=== PATIENT | male | born 1960 | race American Indian/Alaskan Native ===

== ENCOUNTER 2018-02-01 18:58 | Inpatient (IN) | payer BC, OTHER ==
[~2018-02-01] VITALS: Ht 180.3 cm; Wt 82.0 kg
[2018-02-01] MEDS ORDERED: DABI150C PO (20:31)
[2018-02-01] MEDS ORDERED: BENA20TA82 PO (20:31)
[2018-02-01] MEDS ORDERED: BACL10TA2 PO (20:31)
[2018-02-01] MEDS ORDERED: METF850T PO (20:31)
[2018-02-01] MEDS ORDERED: SITA100T11 PO (20:31)
[2018-02-01] MEDS ORDERED: IBUP-1984 PO (20:31)
[2018-02-01] MEDS ORDERED: SOTA80TA73 PO (20:31)
[2018-02-01 21:04] LABS: MEAN CORPUSCULAR HEMOGLOBIN 19.3 PG (27.0-31.0); MEAN CORPUSCULAR HGB CONC 30.5 % (33.0-36.5); MEAN CORPUSCULAR VOLUME 63.4 FL (78-98); MEAN PLATELET VOLUME 7.4 FL (7.4-10.4); PLATELET COUNT 456 X10'3 (140-440); RED BLOOD COUNT 3.22 X10'6 (4.70-6.10); WHITE BLOOD COUNT 5.1 X10'3 (4.5-11.0)
[2018-02-01 21:11] LABS: HEMOGLOBIN 6.2 g/dl (14.0-17.9)
[2018-02-01 21:12] LABS: HEMATOCRIT 20.4 % (42.0-52.0)
[2018-02-01 21:33] LABS: NUCLEATED RED BLOOD CELLS 2 /100WBC (0-0); TOTAL CELLS COUNTED 100
[2018-02-01 21:35] LABS: ANISOCYTOSIS 3+; HYPOCHROMASIA 3+; MICROCYTOSIS 3+; PLATELET ESTIMATE INCREASED; POIKILOCYTOSIS 1+; POLYCHROMASIA FEW
[2018-02-01] MEDS ORDERED: ondansetron/PF 4mg/2ml inj IV PRN (21:40)
[2018-02-01] MEDS ORDERED: acetaminophen 325mg tablet PO PRN (21:40)
[2018-02-01] MEDS ORDERED: insulin Lispro (HumaLOG) vial - multi-dose SQ SCH (21:45)
[2018-02-01] MEDS ORDERED: dextrose 50%-water 50ml dispensing syringe IV PRN ×2 (21:45)
[2018-02-01] MEDS ORDERED: dextrose ORAL solution 15 GM/59 ML bottle PO PRN ×2 (21:45)
[2018-02-01] MEDS ORDERED: MESSAGE TO PHARMACY PO ONE (21:45)
[2018-02-01] MEDS ORDERED: glucagon, human recombinant 1mg kit SUBCUT PRN (21:45)
[2018-02-01 23:00] VITALS: BP 133/59
[2018-02-02] VITALS (19 sets, daily range): BP systolic 111–134; BP diastolic 49–71
[2018-02-02] MEDS: normal saline 1000ml 1,000 ML IV SCH (03:00)
[2018-02-02 05:39] LABS: ALANINE AMINOTRANSFERASE 12 U/L (12-78); ALBUMIN 2.4 G/DL (3.4-5.0); ALBUMIN/GLOBULIN RATIO 0.7 (1.1-1.5); ALKALINE PHOSPHATASE 73 IU/L (46-116); ANION GAP 9 (8-16); ASPARTATE AMINO TRANSFERASE 13 U/L (10-37); BILIRUBIN,TOTAL 2.8 MG/DL (0.1-1.0); BLOOD UREA NITROGEN 6 MG/DL (7-18); BUN/CREATININE RATIO 10.9 (5.4-32.0); CALCIUM 7.7 MG/DL (8.5-10.1); CHLORIDE 108 MMOL/L (99-107); CREATININE 0.55 MG/DL (0.60-1.10); GLUCOSE 72 MG/DL (70-104); POTASSIUM 3.6 MMOL/L (3.5-5.1); SODIUM 142 MMOL/L (135-145); TOTAL CARBON DIOXIDE 25.4 MMOL/L (24-32); TOTAL PROTEIN 5.7 G/DL (6.4-8.2); eGFR > 90 ML/MIN
[2018-02-02 06:04] LABS: MEAN CORPUSCULAR HEMOGLOBIN 21.3 PG (27.0-31.0); MEAN CORPUSCULAR HGB CONC 31.5 % (33.0-36.5); MEAN CORPUSCULAR VOLUME 67.6 FL (78-98); MEAN PLATELET VOLUME 7.5 FL (7.4-10.4); PLATELET COUNT 373 X10'3 (140-440); RED BLOOD COUNT 3.22 X10'6 (4.70-6.10); RED CELL DISTRIBUTION WIDTH 31.7 % (11.5-14.5); WHITE BLOOD COUNT 4.7 X10'3 (4.5-11.0)
[2018-02-02 06:14] LABS: HEMATOCRIT 21.8 % (42.0-52.0); HEMOGLOBIN 6.9 g/dl (14.0-17.9)
[2018-02-02 06:43] LABS: TOTAL CELLS COUNTED 100
[2018-02-02 06:44] LABS: ANISOCYTOSIS 3+; HYPOCHROMASIA 3+; MICROCYTOSIS 1+; PLATELET ESTIMATE NORMAL
[2018-02-02 06:45] LABS: LARGE PLATELETS FEW; POIKILOCYTOSIS 1+; POLYCHROMASIA FEW
[2018-02-02] MEDS: sotalol 80mg tablet PO SCH ×2 (08:31→19:54)
[2018-02-02] MEDS: pantoprazole 40MG/NS 100ML BAG 100 ML IV SCH ×3 (12:27→22:46)
[2018-02-02] MEDS: octreotide inj. 1,250 MCG in normal saline 250ml IV soln 243.75 ML IV SCH (13:22)
[2018-02-02] MEDS ORDERED: HYDROmorphone inj. 0.5 MG/0.5 ML DISP.SYRIN IV PRN (15:50)
[2018-02-02] MEDS: thiamine 100mg tablet PO SCH (16:29)
[2018-02-02] MEDS: folic acid 1mg tablet PO SCH (16:29)
[2018-02-02] MEDS: baclofen 10mg tablet PO PRN (19:53)
[2018-02-02 22:10] LABS: BASOPHILS % (AUTO) 0.2 % (0-1); EOSINOPHILS # (AUTO) 0.1 X10'3 (0-0.9); EOSINOPHILS % (AUTO) 1.8 % (0-6); HEMATOCRIT 29.7 % (42.0-52.0); HEMOGLOBIN 9.6 g/dl (14.0-17.9); LYMPHOCYTES # (AUTO) 1.5 X10'3 (1.1-4.8); LYMPHOCYTES % (AUTO) 21.6 % (21-51); MEAN CORPUSCULAR HEMOGLOBIN 23.2 PG (27.0-31.0); MEAN CORPUSCULAR HGB CONC 32.3 % (33.0-36.5); MEAN CORPUSCULAR VOLUME 71.6 FL (78-98); MEAN PLATELET VOLUME 7.8 FL (7.4-10.4); MONOCYTES # (AUTO) 0.5 X10'3 (0-0.9); MONOCYTES % (AUTO) 6.9 % (2-12); NEUTROPHILS # (AUTO) 4.9 X10'3 (1.8-7.7); NEUTROPHILS % (AUTO) 69.5 % (42-75); PLATELET COUNT 379 X10'3 (140-440); RED BLOOD COUNT 4.15 X10'6 (4.70-6.10); RED CELL DISTRIBUTION WIDTH 30.8 % (11.5-14.5)
[2018-02-02] MEDS: traMADol 50MG tablet PO PRN (22:49)
[2018-02-03] VITALS (15 sets, daily range): BP systolic 104–177; BP diastolic 56–88
[2018-02-03] MEDS: pantoprazole 40MG/NS 100ML BAG 100 ML IV SCH ×3 (02:25→11:17)
[2018-02-03] MEDS: normal saline 1000ml 1,000 ML IV SCH ×2 (06:00→21:36)
[2018-02-03 06:28] LABS: BASOPHILS % (AUTO) 0.5 % (0-1); EOSINOPHILS # (AUTO) 0.2 X10'3 (0-0.9); EOSINOPHILS % (AUTO) 2.7 % (0-6); HEMATOCRIT 29.1 % (42.0-52.0); HEMOGLOBIN 9.2 g/dl (14.0-17.9); LYMPHOCYTES # (AUTO) 1.7 X10'3 (1.1-4.8); LYMPHOCYTES % (AUTO) 27.3 % (21-51); MEAN CORPUSCULAR HEMOGLOBIN 22.8 PG (27.0-31.0); MEAN CORPUSCULAR HGB CONC 31.8 % (33.0-36.5); MEAN CORPUSCULAR VOLUME 71.6 FL (78-98); MEAN PLATELET VOLUME 7.8 FL (7.4-10.4); MONOCYTES # (AUTO) 0.7 X10'3 (0-0.9); MONOCYTES % (AUTO) 10.8 % (2-12); NEUTROPHILS # (AUTO) 3.5 X10'3 (1.8-7.7); NEUTROPHILS % (AUTO) 58.7 % (42-75); PLATELET COUNT 395 X10'3 (140-440); RED BLOOD COUNT 4.06 X10'6 (4.70-6.10); RED CELL DISTRIBUTION WIDTH 30.8 % (11.5-14.5); WHITE BLOOD COUNT 6.1 X10'3 (4.5-11.0)
[2018-02-03 06:30] LABS: BASOPHILS % (AUTO) 0.6 % (0-1); EOSINOPHILS # (AUTO) 0.2 X10'3 (0-0.9); EOSINOPHILS % (AUTO) 3.4 % (0-6); HEMATOCRIT 28.7 % (42.0-52.0); HEMOGLOBIN 9.2 g/dl (14.0-17.9); LYMPHOCYTES # (AUTO) 1.6 X10'3 (1.1-4.8); LYMPHOCYTES % (AUTO) 27.1 % (21-51); MEAN CORPUSCULAR VOLUME 71.9 FL (78-98); MEAN PLATELET VOLUME 7.4 FL (7.4-10.4); MONOCYTES # (AUTO) 0.6 X10'3 (0-0.9); MONOCYTES % (AUTO) 10.2 % (2-12); NEUTROPHILS # (AUTO) 3.6 X10'3 (1.8-7.7); NEUTROPHILS % (AUTO) 58.7 % (42-75); PLATELET COUNT 393 X10'3 (140-440); RED BLOOD COUNT 3.99 X10'6 (4.70-6.10); RED CELL DISTRIBUTION WIDTH 31.3 % (11.5-14.5)
[2018-02-03 06:37] LABS: ALANINE AMINOTRANSFERASE 8 U/L (12-78); ALBUMIN 2.4 G/DL (3.4-5.0); ALBUMIN/GLOBULIN RATIO 0.7 (1.1-1.5); ALKALINE PHOSPHATASE 68 IU/L (46-116); ANION GAP 7 (8-16); ASPARTATE AMINO TRANSFERASE 22 U/L (10-37); BILIRUBIN,TOTAL 3.8 MG/DL (0.1-1.0); BLOOD UREA NITROGEN 5 MG/DL (7-18); BUN/CREATININE RATIO 8.2 (5.4-32.0); CALCIUM 7.9 MG/DL (8.5-10.1); CHLORIDE 108 MMOL/L (99-107); CREATININE 0.61 MG/DL (0.60-1.10); GLUCOSE 88 MG/DL (70-104); POTASSIUM 3.9 MMOL/L (3.5-5.1); SODIUM 140 MMOL/L (135-145); TOTAL CARBON DIOXIDE 24.8 MMOL/L (24-32); TOTAL PROTEIN 5.8 G/DL (6.4-8.2); eGFR > 90 ML/MIN
[2018-02-03 06:55] LABS: ANISOCYTOSIS 3+; HYPOCHROMASIA 2+; PLATELET ESTIMATE NORMAL
[2018-02-03 06:56] LABS: ELLIPTOCYTES 1+
[2018-02-03 06:57] LABS: MICROCYTOSIS 1+; POIKILOCYTOSIS 1+; POLYCHROMASIA 1+; TARGET CELLS FEW
[2018-02-03] MEDS: sotalol 80mg tablet PO SCH ×2 (08:45→19:32)
[2018-02-03] MEDS: multivitamins, therapeutics tablet PO SCH (08:45)
[2018-02-03] MEDS: thiamine 100mg tablet PO SCH (08:45)
[2018-02-03] MEDS: folic acid 1mg tablet PO SCH (08:45)
[2018-02-03] MEDS: baclofen 10mg tablet PO PRN (08:46)
[2018-02-03] MEDS ORDERED: DILT120C88 PO (13:07)
[2018-02-03] MEDS ORDERED: LIDOcaine Viscous 15ml cup ONE (14:11)
[2018-02-03] MEDS ORDERED: MIDAZolam 5mg/5ml vial ONE (14:11)
[2018-02-03] MEDS ORDERED: fentaNYL/PF 50MCG/1 ML 2ML syringe ONE ×2 (14:12)
[2018-02-03] MEDS: octreotide inj. 1,250 MCG in normal saline 250ml IV soln 243.75 ML IV SCH (14:18)
[2018-02-03] MEDS: pantoprazole 40mg Tablet.DR PO SCH (19:32)
[2018-02-03] MEDS: traMADol 50MG tablet PO PRN (21:30)
[2018-02-03 22:01] LABS: BASOPHILS % (AUTO) 0.4 % (0-1); EOSINOPHILS # (AUTO) 0.1 X10'3 (0-0.9); EOSINOPHILS % (AUTO) 0.7 % (0-6); HEMATOCRIT 29.6 % (42.0-52.0); HEMOGLOBIN 9.4 g/dl (14.0-17.9); LYMPHOCYTES # (AUTO) 1.2 X10'3 (1.1-4.8); LYMPHOCYTES % (AUTO) 16.5 % (21-51); MEAN CORPUSCULAR HEMOGLOBIN 22.9 PG (27.0-31.0); MEAN CORPUSCULAR HGB CONC 31.7 % (33.0-36.5); MEAN CORPUSCULAR VOLUME 72.3 FL (78-98); MEAN PLATELET VOLUME 7.7 FL (7.4-10.4); MONOCYTES % (AUTO) 13.6 % (2-12); NEUTROPHILS % (AUTO) 68.8 % (42-75); PLATELET COUNT 380 X10'3 (140-440); RED BLOOD COUNT 4.09 X10'6 (4.70-6.10); RED CELL DISTRIBUTION WIDTH 31.4 % (11.5-14.5); WHITE BLOOD COUNT 7.3 X10'3 (4.5-11.0)
[2018-02-04 05:31] LABS: BASOPHILS % (AUTO) 0.4 % (0-1); EOSINOPHILS # (AUTO) 0.1 X10'3 (0-0.9); HEMATOCRIT 28.1 % (42.0-52.0); HEMOGLOBIN 8.9 g/dl (14.0-17.9); LYMPHOCYTES # (AUTO) 1.7 X10'3 (1.1-4.8); LYMPHOCYTES % (AUTO) 26.4 % (21-51); MEAN CORPUSCULAR HEMOGLOBIN 22.9 PG (27.0-31.0); MEAN CORPUSCULAR HGB CONC 31.6 % (33.0-36.5); MEAN CORPUSCULAR VOLUME 72.5 FL (78-98); MEAN PLATELET VOLUME 7.4 FL (7.4-10.4); MONOCYTES # (AUTO) 0.8 X10'3 (0-0.9); NEUTROPHILS # (AUTO) 3.7 X10'3 (1.8-7.7); NEUTROPHILS % (AUTO) 58.2 % (42-75); PLATELET COUNT 354 X10'3 (140-440); RED BLOOD COUNT 3.87 X10'6 (4.70-6.10); WHITE BLOOD COUNT 6.3 X10'3 (4.5-11.0)
[2018-02-04 05:51] LABS: ALANINE AMINOTRANSFERASE 9 U/L (12-78); ALBUMIN 2.2 G/DL (3.4-5.0); ALBUMIN/GLOBULIN RATIO 0.6 (1.1-1.5); ALKALINE PHOSPHATASE 66 IU/L (46-116); ANION GAP 7 (8-16); ASPARTATE AMINO TRANSFERASE 19 U/L (10-37); BILIRUBIN,TOTAL 2.7 MG/DL (0.1-1.0); BLOOD UREA NITROGEN 5 MG/DL (7-18); BUN/CREATININE RATIO 8.6 (5.4-32.0); CALCIUM 7.8 MG/DL (8.5-10.1); CHLORIDE 108 MMOL/L (99-107); CREATININE 0.58 MG/DL (0.60-1.10); GLUCOSE 84 MG/DL (70-104); POTASSIUM 3.7 MMOL/L (3.5-5.1); SODIUM 141 MMOL/L (135-145); TOTAL PROTEIN 5.6 G/DL (6.4-8.2); eGFR > 90 ML/MIN
[2018-02-04 07:15] VITALS: BP 125/69
[2018-02-04] MEDS: sotalol 80mg tablet PO SCH (08:09)
[2018-02-04] MEDS: thiamine 100mg tablet PO SCH (08:09)
[2018-02-04] MEDS: multivitamins, therapeutics tablet PO SCH (08:09)
[2018-02-04] MEDS: pantoprazole 40mg Tablet.DR PO SCH (08:09)
[2018-02-04] MEDS: folic acid 1mg tablet PO SCH (08:09)
[2018-02-04 11:25] VITALS: BP 126/71
[2018-02-04 12:50] LABS: HEMATOCRIT 29.4 % (42.0-52.0); HEMOGLOBIN 9.5 g/dl (14.0-17.9); MEAN CORPUSCULAR HEMOGLOBIN 23.9 PG (27.0-31.0); MEAN CORPUSCULAR HGB CONC 32.2 % (33.0-36.5); MEAN CORPUSCULAR VOLUME 74.1 FL (78-98); MEAN PLATELET VOLUME 7.8 FL (7.4-10.4); PLATELET COUNT 328 X10'3 (140-440); RED BLOOD COUNT 3.97 X10'6 (4.70-6.10); WHITE BLOOD COUNT 6.9 X10'3 (4.5-11.0)
[2018-02-04] MEDS ORDERED: PANT-47 PO (12:53)
[2018-02-04] MEDS ORDERED: TRAM50TA2 PO (12:53)
[2018-02-04 14:08] LABS: ANISOCYTOSIS 3+; PLATELET ESTIMATE NORMAL; TOTAL CELLS COUNTED 100
[2018-02-04 14:09] LABS: HYPOCHROMASIA 3+
[2018-02-04 14:10] LABS: TARGET CELLS FEW; TEAR DROP CELLS FEW
[2018-02-04 14:11] LABS: ELLIPTOCYTES FEW; MICROCYTOSIS 1+; POLYCHROMASIA 1+
[2018-02-04 14:12] LABS: POIKILOCYTOSIS 1+
== END 2018-02-04 15:39 | disposition home or self-care (01) | DRG 378 ==
LOC: ER 18:59 → ED HOLD 21:36 → SUR 3N 22:31
PROVIDERS: ADMIT Internal Medicine; ATTEND Family Medicine
PROC: 30233N1 Transfusion of Nonautologous Red Blood Cells into Peripheral Vein, Percutaneous Approach (ICD-10-PCS; 2018-02-02)
PROC: 0DB68ZX Excision of Stomach, Via Natural or Artificial Opening Endoscopic, Diagnostic (ICD-10-PCS; principal; 2018-02-03)
PROC: 3E02340 Introduction of Influenza Vaccine into Muscle, Percutaneous Approach (ICD-10-PCS; 2018-02-03)
DX: K29.01 Acute gastritis with bleeding (principal); D62 Acute posthemorrhagic anemia; K27.4 Chronic or unspecified peptic ulcer, site unspecified, with hemorrhage; E11.9 Type 2 diabetes mellitus without complications; E78.00 Pure hypercholesterolemia, unspecified; K44.9 Diaphragmatic hernia without obstruction or gangrene; E78.5 Hyperlipidemia, unspecified; K76.0 Fatty (change of) liver, not elsewhere classified; F10.10 Alcohol abuse, uncomplicated; F17.210 Nicotine dependence, cigarettes, uncomplicated; I10 Essential (primary) hypertension; I48.91 Unspecified atrial fibrillation; G89.29 Other chronic pain; M19.90 Unspecified osteoarthritis, unspecified site; M54.9 Dorsalgia, unspecified; Z23 Encounter for immunization; Z88.0 Allergy status to penicillin; Z88.5 Allergy status to narcotic agent; Z79.899 Other long term (current) drug therapy; Z71.41 Alcohol abuse counseling and surveillance of alcoholic
CPT/HCPCS: 36415; 43239; 76700; 80053; 82948; 83036; 84484; 85025; 86885; 86900; 86901; 86920; 87070; 93005; 99152; 99285; A4620; C9113; J2250; J2354; J3010; J7030; P9016; Q2037

== ENCOUNTER 2018-06-02 05:40 | Inpatient (IN) | payer BC, OTHER | END 2018-06-18 14:30 | disposition home or self-care (01) | LOC: SUR 3N 06-04 21:00 → PAS IN 05:40 → SUR 3N 11:15 | PROC: 0DTN4ZZ Resection of Sigmoid Colon, Percutaneous Endoscopic Approach (ICD-10-PCS; principal; 2018-06-02 07:28) | DX: C18.7 Malignant neoplasm of sigmoid colon (principal) ==

== ENCOUNTER 2019-06-08 11:13 | Day surgery (SDC) | payer BC, OTHER ==
[~2019-06-08] VITALS: Ht 175.3 cm; Wt 98.2 kg
[2019-06-08] VITALS (8 sets, daily range): BP systolic 107–135; BP diastolic 69–76
[~2019-06-08 11:13] MED LIST: ATOR10TA70 PO; BACL10TA PO; CHOL500061 PO; DILT120C88 PO; DOCUMENT DATE & TIME OF BETA-BLOCKER PO ONE; SOTA80TA73 PO; TRAM50TA2 PO; clindamycin-Cleocin 900mg/D5W 50 ML IV ONE; famotidine 20mg tablet PO ONE
[2019-06-08] MEDS ORDERED: HYDR-4353 PO (12:00)
[2019-06-08 12:42] LABS: BASOPHILS % (AUTO) 0.5 % (0-1); EOSINOPHILS # (AUTO) 0.1 X10'3 (0-0.9); LYMPHOCYTES # (AUTO) 1.5 X10'3 (1.1-4.8); LYMPHOCYTES % (AUTO) 26.8 % (21-51); MEAN CORPUSCULAR HEMOGLOBIN 29.9 PG (27.0-31.0); MEAN CORPUSCULAR HGB CONC 33.4 g/dL (33.0-36.5); MEAN CORPUSCULAR VOLUME 89.4 FL (78-98); MEAN PLATELET VOLUME 6.9 FL (7.4-10.4); MONOCYTES # (AUTO) 0.7 X10'3 (0-0.9); MONOCYTES % (AUTO) 13.3 % (2-12); NEUTROPHILS # (AUTO) 3.2 X10'3 (1.8-7.7); NEUTROPHILS % (AUTO) 57.4 % (42-75); PRE OP HEMATOCRIT 40.8 % (42.0-52.0); PRE OP HEMOGLOBIN 13.6 g/dL (14.0-17.9); PRE OP PLATELET COUNT 210 X10'3 (140-440); RED BLOOD COUNT 4.57 X10'6 (4.70-6.10); RED CELL DISTRIBUTION WIDTH 16.3 % (11.5-14.5)
[2019-06-08 12:56] LABS: ALBUMIN 3.3 G/DL (3.4-5.0); ALKALINE PHOSPHATASE 118 IU/L (46-116); BLOOD UREA NITROGEN 10 MG/DL (7-18); BUN/CREATININE RATIO 17.2 (5.4-32.0); CALCIUM 8.5 MG/DL (8.5-10.1); CHLORIDE 109 MMOL/L (99-107); CREATININE 0.58 MG/DL (0.60-1.10); PRE OP ALT 25 U/L (30-65); PRE OP ANION GAP 10 (8-16); PRE OP AST 24 U/L (10-37); PRE OP BILIRUB, TOTAL 1.9 MG/DL (0.0-1.0); PRE OP GLUCOSE 98 MG/DL (70-104); PRE OP POTASSIUM 3.6 MMOL/L (3.4-5.1); PRE OP SODIUM 144 MMOL/L (135-145); TOTAL CARBON DIOXIDE 25.5 MMOL/L (24-32); TOTAL PROTEIN 6.7 G/DL (6.4-8.2); eGFR > 90 ML/MIN
[2019-06-08] MEDS ORDERED: LIDOcaine 1% 30ml preserv. free vial ONE (13:25)
[2019-06-08] MEDS ORDERED: fentaNYL/PF 50MCG/1 ML 2ML syringe ONE (13:46)
[2019-06-08] MEDS ORDERED: ketamine 50mg/5ml syringe ONE (13:47)
[2019-06-08] MEDS ORDERED: midazolam 2 mg/2 ml injection ONE (13:47)
[2019-06-08] MEDS ORDERED: propofol inj 20 ML IV ONE (14:02)
[2019-06-08] MEDS ORDERED: LIDOcaine 2% (20mg/ml) 5ml vial ONE (14:02)
--- NOTE | 2019-06-08 14:06 | NUR ---
Received from OR via , accompanied by Anesthesiologist DR LU and report given by Anesthesiolgist. PT AWAKE. VSS. RIGHT CHEST ISLAND DSG C/D/I. NO C/O PAIN.
--- NOTE | 2019-06-08 15:06 | NUR ---
VSS. PT DENIES PAIN. RIGHT CHEST DSG C/D/I. INSTRUCTIONS REVIEWED WITH PATIENT WHO VERBALIZES UNDERSTANDING. D/C TO [facility] WHERE IS WAITING. D/C VIA W/C WITH PERSONAL BELONGINGS(PHONE/GLASSES) PRESENT TO AWAITING [facility] TRANSPORT
== END 2019-06-08 15:06 | disposition home or self-care (01) ==
LOC: PAS 11:13
PROVIDERS: ATTEND Surgery
DX: C18.9 Malignant neoplasm of colon, unspecified (principal); E11.9 Type 2 diabetes mellitus without complications; I10 Essential (primary) hypertension; Z79.899 Other long term (current) drug therapy; Z72.89 Other problems related to lifestyle; Z87.891 Personal history of nicotine dependence; Z88.5 Allergy status to narcotic agent; Z88.0 Allergy status to penicillin; Z80.0 Family history of malignant neoplasm of digestive organs; Z90.49 Acquired absence of other specified parts of digestive tract
CPT/HCPCS: 36415; 36589; 80053; 85025; J2001; J2250; J2704; J3010; A4215; A7000; J3490